=== PATIENT | female | born 1975 | race American Indian/Alaskan Native ===

== ENCOUNTER 2021-03-23 16:07 | Emergency (ER) | payer OTHER ==
[2021-03-23] MEDS ORDERED: ONDANSETRON 4 MG ODT TAB PO ONE (17:20)
[2021-03-23] MEDS ORDERED: HYDROcodone/ACETAMINOPHEN 5-325 MG TAB PO ONE (17:20)
[2021-03-23 17:40] LABS: Bacteria,Urine 1+ /HPF (Negative); Bilirubin,Urine NEG (Negative); Blood,Urine NEG (Negative); Color,Urine Yellow (Yellow); Mucus,Urine 2+ /HPF; Protein,Urine <15 mg/dL mg/dL (Negative); Urobilinogen,Urine < 2.0 mg/dL (<2.0)
[2021-03-23 18:16] LABS: Basophils # (Auto) 0.2 K/mm3 (0.0-0.1); Basophils % (Auto) 1.5 % (0.0-1.8); Eosinophils # (Auto) 0.2 K/mm3 (0.0-0.4); Eosinophils % (Auto) 1.4 % (0.0-4.3); Hematocrit 42.9 % (30.3-42.9); Hemoglobin 14.2 gm/dl (10.1-14.3); Lymphocytes # (Auto) 3.9 K/mm3 (1.2-5.4); Lymphocytes % (Auto) 33.7 % (13.4-35.0); Mean Corpuscular HGB Conc 33 % (30-34); Mean Corpuscular Volume 86 fl (79-97); Monocytes # (Auto) 0.7 K/mm3 (0.0-0.8); Monocytes % (Auto) 5.8 % (0.0-7.3); Platelet Count 320 K/mm3 (140-440); Red Blood Count 4.98 M/mm3 (3.65-5.03); Red Cell Distribution Width 13.1 % (13.2-15.2)
--- NOTE | 2021-03-23 18:32 | Emergency Department Report ---
ED General Adult HPI - General Chief complaint: Abdominal Pain Stated complaint: RIGHT SIDE PAIN Time Seen by Provider: 03/23/21 16:36 Source: patient Mode of arrival: Ambulatory Limitations: No Limitations - History of Present Illness Initial comments: Patient is a 46-year-old female presents emergency room with complaints of right upper back pain that began 2 days ago. She states that she also has pain under her right ribs. Patient has associated nausea. She denies any vomiting, diarrhea, cough, shortness of breath, pleuritic pain, leg swelling, calf pain, hemoptysis. Past medical history of hypertension and hypercholesteremia. No allergies to medicines. Severity scale (0 -10): 10 - Related Data Previous Rx's Medication Instructions Recorded Last Taken Type Naproxen 375 mg PO BID PRN #14 tablet 03/23/21 Unknown Rx methOCARBAMOL [Robaxin TAB] 500 mg PO BID PRN #14 tab 03/23/21 Unknown Rx Allergies Allergy/AdvReac Type Severity Reaction Status Date / Time No Known Allergies Allergy Verified 03/23/21 16:31 ED Review of Systems ROS: Stated complaint: RIGHT SIDE PAIN Other details as noted in HPI Comment: All other systems reviewed and negative ED Past Medical Hx - Social History Smoking Status: Never Smoker Substance Use Type: None - Medications Home Medications: Home Medications Medication Instructions Recorded Confirmed Last Taken Type Naproxen 375 mg PO BID PRN #14 tablet 03/23/21 Unknown Rx methOCARBAMOL [Robaxin TAB] 500 mg PO BID PRN #14 tab 03/23/21 Unknown Rx ED Physical Exam - General Limitations: No Limitations General appearance: alert, in no apparent distress - Head Head exam: Present: atraumatic, normocephalic - Eye Eye exam: Present: normal appearance - ENT ENT exam: Present: mucous membranes moist - Respiratory Respiratory exam: Present: normal lung sounds bilaterally. Absent: respiratory distress, wheezes, rales, rhonchi, stridor, chest wall tenderness, accessory muscle use, decreased breath sounds, prolonged expiratory - Cardiovascular Cardiovascular Exam: Present: regular rate, normal rhythm, normal heart sounds. Absent: systolic murmur, diastolic murmur, rubs, gallop - GI/Abdominal GI/Abdominal exam: Present: soft, tenderness (mild RUQ), normal bowel sounds. Absent: distended, guarding, rebound, rigid - Neurological Exam Neurological exam: Present: alert, oriented X3 - Psychiatric Psychiatric exam: Present: normal affect, normal mood - Skin Skin exam: Present: warm, dry, intact ED Course Vital Signs 03/23/21 03/23/21 03/23/21 16:14 16:23 19:31 Temperature 98.2 F 98.1 F 97.9 F Pulse Rate 95 H 83 81 Respiratory 15 16 14 Rate Blood Pressure 130/75 Blood Pressure 148/102 141/89 [Right] O2 Sat by Pulse 100 98 100 Oximetry ED Medical Decision Making - Lab Data Result diagrams: 03/23/21 18:03 03/23/21 18:03 Lab Results 03/23/21 03/23/21 03/23/21 Range/Units 18:03 18:03 18:03 WBC 11.5 H (4.5-11.0) K/mm3 RBC 4.98 (3.65-5.03) M/mm3 Hgb 14.2 (10.1-14.3) gm/dl Hct 42.9 (30.3-42.9) % MCV 86 (79-97) fl MCH 29 (28-32) pg MCHC 33 (30-34) % RDW 13.1 L (13.2-15.2) % Plt Count 320 (140-440) K/mm3 Lymph % (Auto) 33.7 (13.4-35.0) % [place] % (Auto) 5.8 (0.0-7.3) % Eos % (Auto) 1.4 (0.0-4.3) % Baso % (Auto) 1.5 (0.0-1.8) % Lymph # (Auto) 3.9 (1.2-5.4) K/mm3 [place] # (Auto) 0.7 (0.0-0.8) K/mm3 Eos # (Auto) 0.2 (0.0-0.4) K/mm3 Baso # (Auto) 0.2 H (0.0-0.1) K/mm3 Seg Neutrophils % 57.6 (40.0-70.0) % Seg Neutrophils # 6.6 (1.8-7.7) K/mm3 D-Dimer (0-234) ng/mlDDU Sodium 137 (137-145) mmol/L Potassium 3.8 (3.6-5.0) mmol/L Chloride 96.8 L (98-107) mmol/L Carbon Dioxide 25 (22-30) mmol/L Anion Gap 19 mmol/L BUN 27 H (7-17) mg/dL Creatinine 1.1 (0.6-1.2) mg/dL Estimated GFR > 60 ml/min BUN/Creatinine Ratio 25 % Glucose 106 H (65-100) mg/dL Calcium 10.3 H (8.4-10.2) mg/dL Total Bilirubin 0.30 (0.1-1.2) mg/dL AST 36 (5-40) units/L ALT 45 (7-56) units/L Alkaline Phosphatase 70 (35-129) units/L Troponin T < 0.010 (0.00-0.029) ng/mL Total Protein 7.4 (6.3-8.2) g/dL Albumin 4.7 (3.9-5) g/dL Albumin/Globulin Ratio 1.7 % Lipase 28 (13-60) units/L HCG, Qual Negative (Negative) Urine Color (Yellow) Urine Turbidity (Clear) Urine pH (5.0-7.0) Ur Specific [place] (1.003-1.030) Urine Protein (Negative) mg/dL Urine Glucose (UA) (Negative) mg/dL Urine Ketones (Negative) mg/dL Urine Blood (Negative) Urine Nitrite (Negative) Urine Bilirubin (Negative) Urine Urobilinogen (<2.0) mg/dL Ur Leukocyte Esterase (Negative) Urine WBC (Auto) (0.0-6.0) /HPF Urine RBC (Auto) (0.0-6.0) /HPF U Epithel Cells (Auto) (0-13.0) /HPF Urine Bacteria (Auto) (Negative) /HPF Urine Mucus /HPF 03/23/21 03/23/21 Range/Units 18:10 Unknown WBC (4.5-11.0) K/mm3 RBC (3.65-5.03) M/mm3 Hgb (10.1-14.3) gm/dl Hct (30.3-42.9) % MCV (79-97) fl MCH (28-32) pg MCHC (30-34) % RDW (13.2-15.2) % Plt Count (140-440) K/mm3 Lymph % (Auto) (13.4-35.0) % [place] % (Auto) (0.0-7.3) % Eos % (Auto) (0.0-4.3) % Baso % (Auto) (0.0-1.8) % Lymph # (Auto) (1.2-5.4) K/mm3 [place] # (Auto) (0.0-0.8) K/mm3 Eos # (Auto) (0.0-0.4) K/mm3 Baso # (Auto) (0.0-0.1) K/mm3 Seg Neutrophils % (40.0-70.0) % Seg Neutrophils # (1.8-7.7) K/mm3 D-Dimer 169.30 (0-234) ng/mlDDU Sodium (137-145) mmol/L Potassium (3.6-5.0) mmol/L Chloride (98-107) mmol/L Carbon Dioxide (22-30) mmol/L Anion Gap mmol/L BUN (7-17) mg/dL Creatinine (0.6-1.2) mg/dL Estimated GFR ml/min BUN/Creatinine Ratio % Glucose (65-100) mg/dL Calcium (8.4-10.2) mg/dL Total Bilirubin (0.1-1.2) mg/dL AST (5-40) units/L ALT (7-56) units/L Alkaline Phosphatase (35-129) units/L Troponin T (0.00-0.029) ng/mL Total Protein (6.3-8.2) g/dL Albumin (3.9-5) g/dL Albumin/Globulin Ratio % Lipase (13-60) units/L HCG, Qual (Negative) Urine Color Yellow (Yellow) Urine Turbidity Clear (Clear) Urine pH 5.0 (5.0-7.0) Ur Specific [place] 1.016 (1.003-1.030) Urine Protein <15 mg/dl (Negative) mg/dL Urine Glucose (UA) Neg (Negative) mg/dL Urine Ketones Neg (Negative) mg/dL Urine Blood Neg (Negative) Urine Nitrite Neg (Negative) Urine Bilirubin Neg (Negative) Urine Urobilinogen < 2.0 (<2.0) mg/dL Ur Leukocyte Esterase Neg (Negative) Urine WBC (Auto) 4.0 (0.0-6.0) /HPF Urine RBC (Auto) 1.0 (0.0-6.0) /HPF U Epithel Cells (Auto) 3.0 (0-13.0) /HPF Urine Bacteria (Auto) 1+ (Negative) /HPF Urine Mucus 2+ /HPF Vital Signs 03/23/21 03/23/21 03/23/21 16:14 16:23 19:31 Temperature 98.2 F 98.1 F 97.9 F Pulse Rate 95 H 83 81 Respiratory 15 16 14 Rate Blood Pressure 130/75 Blood Pressure 148/102 141/89 [Right] O2 Sat by Pulse 100 98 100 Oximetry - EKG Data EKG shows normal: sinus rhythm, axis, intervals, QRS complexes, ST-T waves Rate: normal - Radiology Data Radiology results: report reviewed Ordering Physician: ZACARIAS TORO Date of Service: 03/23/21 Procedure(s): US abdomen limited Accession Number(s): [id number] cc: ZACARIAS TORO LIMITED RUQ ABDOMINAL ULTRASOUND INDICATION: RUQ pain. COMPARISON: No relevant prior imaging study available. FINDINGS: Pancreas: The pancreas is poorly visualized due to bowel gas. No gross abnormality. Abdominal Aorta: No significant abnormality. IVC: No significant abnormality. Liver: The liver measures 13.3 cm in length. The liver parenchyma is echogenic and attenuates the ultrasound beam consistent with moderate hepatic steatosis. No focal liver lesion is detected. Normal hepatopedal blood flow in the main portal vein. Gallbladder: No significant abnormality. Bile ducts: No significant abnormality. Common bile duct measures 3 mm. Right kidney: No significant abnormality visualized. Free fluid: None. Additional Findings: None. IMPRESSION: Hepatic steatosis. Signer Name: Kar Underwood Jr, MD Signed: 03/23/2021 7:41 PM Workstation Name: [id number] Transcribed By: TTR Dictated By: KAR UNDERWOOD JR, MD Electronically Authenticated By: KAR UNDERWOOD JR, MD Signed Date/Time: 03/23/211940 DD/ 38 TD/TT: Ordering Physician: ZACARIAS TORO Date of Service: 03/23/21 Procedure(s): XR chest routine 2V Accession Number(s): [id number] cc: ZACARIAS TORO Fluoro Time In Minutes: CHEST 2 VIEWS INDICATION: right rib pain, right CP. COMPARISON: none FINDINGS: Support devices: None. Heart: Within normal limits. Lungs/pleura: No acute air space or interstitial disease. No pneumothorax. Additional findings: No thoracic fracture is detected on x-ray. IMPRESSION: No acute findings. Signer Name: Kar Underwood Jr, MD Signed: 03/23/2021 6:45 PM Workstation Name: [id number] Transcribed By: TTR Dictated By: KAR UNDERWOOD JR, MD Electronically Authenticated By: KAR UNDERWOOD JR, MD Signed Date/Time: 03/23/211844 DD/ 44 TD/TT: - Medical Decision Making Patient is a 46-year-old female presents emergency room with complaints of right upper back pain that began 2 days ago. She states that she also has pain under her right ribs. Patient has associated nausea. She denies any vomiting, diarrhea, cough, shortness of breath, pleuritic pain, leg swelling, calf pain, h emoptysis. Past medical history of hypertension and hypercholesteremia. No allergies to medicines. Vitals are stable. On exam patient has mild right upper quadrant tenderness, no guarding, no rebound, no rigidity, no peritoneal signs. Labs are stable. UA without evidence of significant UTI. Chest x-ray No acute findings. Right upper quadrant ultrasound Hepatic steatosis. EKG is within normal limits. Troponin is negative. D-dimer is negative. PERC criteria negative for PE, PE unlikely. Symptoms could be musculoskeletal in nature. Patient given prescription for medication. Advised patient Please take medication as prescribed as needed. Follow-up with a primary care doctor. Follow-up with a agile developer. Return to emergency room for any new or worsening symptoms. Critical care attestation.: If time is entered above; I have spent that time in minutes in the direct care of this critically ill patient, excluding procedure time. ED Disposition Clinical Impression: Right-sided chest pain, Hepatic steatosis Right-sided back pain Qualifiers: Back pain location: thoracic back pain Chronicity: acute Qualified Code(s): M54.6 - Pain in thoracic spine Disposition: HOME / SELF CARE / HOMELESS Is pt being admited?: No Does the pt Need Aspirin: No Condition: Stable Instructions: Acute Back Pain, Adult, Nonspecific Chest Pain, Adult, Abdominal Pain (ED) Additional Instructions: Please take medication as prescribed as needed. Follow-up with a primary care doctor. Follow-up with a agile developer. Return to emergency room for any new or worsening symptoms. Prescriptions: Naproxen 375 mg PO BID PRN #14 tablet PRN Reason: pain methOCARBAMOL [Robaxin TAB] 500 mg PO BID PRN #14 tab PRN Reason: muscle spasm/pain Referrals: JEAN MCWILLIAMS MD [Staff Physician] - 3-5 Days [facility] [Provider Group] - 3-5 Days JERRY CAMP MD [Staff Physician] - 3-5 Days CARLOS ZURITA MD [Staff Physician] - 3-5 Days (agile developer) Time of Disposition: 19:53 Print Language: MOHAWK
[2021-03-23 18:38] LABS: Alanine Aminotransferase 45 units/L (7-56); Albumin 4.7 g/dL (3.9-5); BUN/Creatinine Ratio 25; Blood Urea Nitrogen 27 mg/dL (7-17); Calcium 10.3 mg/dL (8.4-10.2); Hemolysis Index 12
--- NOTE | 2021-03-23 18:49 | XRay Report ---
CHEST 2 VIEWS INDICATION: right rib pain, right CP. COMPARISON: none FINDINGS: Support devices: None. Heart: Within normal limits. Lungs/pleura: No acute air space or interstitial disease. No pneumothorax. Additional findings: No thoracic fracture is detected on x-ray. IMPRESSION: No acute findings. Signer Name: Kar Underwood Jr, MD Signed: 03/23/2021 6:45 PM Workstation Name: [id number]
[2021-03-23 19:31] VITALS: BP 141/89
[2021-03-23] MEDS ORDERED: KETOROLAC 60 MG/2 ML INJ IM ONE (19:36)
--- NOTE | 2021-03-23 19:45 | Ultrasound Report ---
LIMITED RUQ ABDOMINAL ULTRASOUND INDICATION: RUQ pain. COMPARISON: No relevant prior imaging study available. FINDINGS: Pancreas: The pancreas is poorly visualized due to bowel gas. No gross abnormality. Abdominal Aorta: No significant abnormality. IVC: No significant abnormality. Liver: The liver measures 13.3 cm in length. The liver parenchyma is echogenic and attenuates the ul trasound beam consistent with moderate hepatic steatosis. No focal liver lesion is detected. Normal h epatopedal blood flow in the main portal vein. Gallbladder: No significant abnormality. Bile ducts: No significant abnormality. Common bile duct measures 3 mm. Right kidney: No significant abnormality visualized. Free fluid: None. Additional Findings: None. IMPRESSION: Hepatic steatosis. Signer Name: Kar Underwood Jr, MD Signed: 03/23/2021 7:41 PM Workstation Name: [id number]
--- NOTE | 2021-03-25 10:24 | Electrocardiograph Report ---
[facility] Test Date: 2021-03-23 Test Time: 19:53:23 Pat Name: LEXIS PERALTA Department: Room: Gender: F Systems Analyst Developer: NURSE : 1975 Requested By: ANNIE BAI Order Number: [id number] Reading MD: Chau Benavides Measurements Intervals [place] Rate: 63 P: 43 [place]: 169 QRS: 46 QRSD: 83 T: 53 QT: 411 QTc: 420 Interpretive Statements Sinus rhythm Nonspecific T wave changes No previous ECG available for comparison Electronically Signed On 03-25-2021 10:24:07 EST by Chau Benavides
== END 2021-03-23 20:10 | disposition home or self-care (01) ==
LOC: ED 16:07
DX: M54.6 Pain in thoracic spine (principal); R07.9 Chest pain, unspecified; K76.0 Fatty (change of) liver, not elsewhere classified; I10 Essential (primary) hypertension; E78.00 Pure hypercholesterolemia, unspecified
CPT/HCPCS: 36415; 71046; 76705; 80053; 81001; 83690; 84484; 84703; 85025; 85379; 93005; 96372; 99284; J1885; J3490; Q0162